=== PATIENT | female | born 1955 | race American Indian/Alaskan Native ===

== ENCOUNTER 2016-10-23 10:41 | Outpatient (CLI) | payer OTHER ==
--- NOTE | 2016-10-23 11:45 | XRay Report ---
BILATERAL HIPS WITH PELVIS RADIOGRAPHS INDICATION: Left hip pain. COMPARISON: 02/27/2016. FINDINGS: AP pelvic and frog leg projections of both hips again demonstrate asymmetric advanced left hip degenerative changes including severe joint space narrowing, extensive subchondral cysts and slight flattening of the left femoral head superiorly, involving approximately 40% articular surface with bony ridging laterally at the junction of the left femoral head and neck also noted. Intact remainder pelvic articulation, including the SI joints. Normal right hip joint. Lower lumbar degenerative changes again seen. Colonic stool/possible constipation. Left hemipelvic phlebolith. Osteopenia not excluded. CONCLUSION: 1. Severe asymmetric left hip degenerative changes again noted, as described. 2. Few other findings, including lower lumbar spondylosis. Thank you for the opportunity to participate in this patient's care.
== END 2016-10-23 10:42 | disposition home or self-care (01) ==
LOC: XRAY 10:41
DX: M25.852 Other specified joint disorders, left hip (principal); M47.896 Other spondylosis, lumbar region; I87.8 Other specified disorders of veins; M25.851 Other specified joint disorders, right hip; M85.88 Other specified disorders of bone density and structure, other site
CPT/HCPCS: 73521